=== PATIENT | male | born 1990 | race Hispanic/Latino ===

== ENCOUNTER 2018-04-11 01:42 | Emergency (ER) | payer OTHER ==
[2018-04-11 02:10] VITALS: RESP 18
[2018-04-11 02:11] VITALS: BMI 32.3
--- NOTE | 2018-04-11 02:59 | ED PDOC ---
HPI: Chest Pain Time Seen by Provider: 04/11/18 02:20 Chief Complaint (Nursing): Palpitations History Per: Patient History/Exam Limitations: clinical condition Onset/Duration Of Symptoms: Hrs Current Symptoms Are (Timing): Gone Now Additional Complaint(s): Hx of HTN presenting with resolved bilateral arm tingling and palpitations. States he was watching TV on his phone in bed around 1245AM, states that he got up to use the bathroom and felt sudden onset of bilateral arm tingling as if they were falling asleep, girlfriend relates that they were shaking as well, states that he was having palpitations during that but states that he was feeling anxious, denies chest pain, shortness of breath. States he was in [place] today but was not drinking alcohol and denies drugs. No cough, fevers, chills, nausea, vomiting, diarrhea, abdominal pain. Past Medical History Reviewed: Historical Data, Nursing Documentation, Vital Signs Vital Signs: Last Vital Signs Temp 98.2 F 04/11/18 02:10 Pulse 76 04/11/18 04:07 Resp 18 04/11/18 02:10 BP 179/137 H 04/11/18 04:07 Pulse Ox 100 04/11/18 04:07 - Family History Family History: States: Unknown Family Hx - Home Medications Home Medications: Ambulatory Orders Medication Instructions Recorded hydroCHLOROthiazide [Microzide] 50 mg PO DAILY #30 tab 04/11/18 - Allergies Allergies/Adverse Reactions: Allergies Allergy/AdvReac Type Severity Reaction Status Date / Time No Known Allergies Allergy Verified 04/11/18 02:11 Review of Systems ROS Statement: Except As Marked, All Systems Reviewed And Found Negative Cardiovascular: Positive for: Palpitations Physical Exam - Reviewed Nursing Documentation Reviewed: Yes Vital Signs Reviewed: Yes - Physical Exam Appears: Positive for: Well, Non-toxic, No Acute Distress Head Exam: Positive for: ATRAUMATIC, NORMAL INSPECTION, NORMOCEPHALIC Skin: Positive for: Normal Color, Warm, DRY Eye Exam: Positive for: EOMI, Normal appearance, PERRL ENT: Positive for: Normal ENT Inspection Neck: Positive for: Normal, Painless ROM Cardiovascular/Chest: Positive for: Regular Rate, Rhythm Respiratory: Positive for: CNT, Normal Breath Sounds Gastrointestinal/Abdominal: Positive for: Normal Exam, Soft Back: Positive for: Normal Inspection Extremity: Positive for: Normal ROM Neurologic/Psych: Positive for: Alert, Oriented - Laboratory Results Result Diagrams: 04/11/18 03:25 04/11/18 03:25 - ECG O2 Sat by Pulse Oximetry: 99 Medical Decision Making Medical Decision MakinAM Hx of HTN on HCTZ, amolidipne, labetolol presenting with resolved tinglign -currently well appearing normal vitals, no symptoms, no chest pain -EKG shows TWI in inferior leads, patient states he's had EKG abnormalities in reanna past -will do bloodwork and serial EKGs, CXR 5AM -patient remains asymptomatic -BP elevated currently, will give amlodipine and lisinopril -patient ran out of HCTZ, will refill -repeat eKG shows no changes -strongly advised patient to followup with his PMD in [facility] on Thursday for followup -return precautions given Disposition - Clinical Impression Clinical Impression: Palpitations, Hypertension - Patient ED Disposition Is Patient to be Admitted: No - Disposition Referrals: [facility]ia Humphreys [Outside] Disposition: Routine/Home Disposition Time: 05: Condition: STABLE Additional Instructions: Please followup with your primary care doctor on Thursday. If you develop worsening symptoms or chest pain, shortness of breath, or any new concerning symptoms, please return to the ER. Prescriptions: hydroCHLOROthiazide [Microzide] 50 mg PO DAILY #30 tab Instructions: High Blood Pressure in Adults, Medicines for High Blood Pressure , Low Salt Diet, Palpitations Forms: [employer] [facility] (Yi)
[2018-04-11 03:37] LABS: BASO # 0.1 K/uL (0.0-0.2); BASO % 0.8 % (0.0-2.0); EOS # 0.2 K/uL (0.0-0.7); EOS % 2.2 % (0.0-4.0); HEMOGLOBIN 16.4 g/dL (12.0-18.0); LYMPH # 2.1 K/uL (1.0-4.3); MEAN CELL VOLUME 82.2 fl (80.0-94.0); MEAN CORPUSCULAR HEMOGLOBIN 29.4 pg (27.0-31.0); MEAN CORPUSCULAR HGB CONC 35.8 g/dL (33.0-37.0); MEAN PLATELET VOLUME 9.8 fl (7.2-11.7); MONO # 0.8 K/uL (0.0-0.8); NEUT # 7.3 K/uL (1.8-7.0); NRBC % 0.2 % (0.0-0.0); RBC 5.57 Mil/uL (4.40-5.90); RED CELL DISTRIBUTION WIDTH 12.9 % (11.5-14.5); WHITE BLOOD COUNT 10.6 K/uL (4.8-10.8)
[2018-04-11 03:43] LABS: BLOOD UREA NITROGEN 14 mg/dl (9-20); CALCIUM 9.3 mg/dL (8.4-10.2); GFR AFRICAN-AMERICAN > 60; GFR NON-AFRICAN AMERICAN > 60
[2018-04-11 04:06] LABS: INR 1.1 (0.9-1.2); PARTIAL THROMBOPLASTIN TIME 32.1 Seconds (25.6-37.1); PROTHROMBIN TIME 12.7 Seconds (9.8-13.1)
[2018-04-11 05:27] VITALS: O2SAT 99
[2018-04-11 08:21] VITALS: BP 177/116; PULSE 84; TEMP 98.4
--- NOTE | 2018-04-11 11:53 | RAD ---
Date of service: 04/11/2018 HISTORY: palpitations COMPARISON: No prior. TECHNIQUE: Chest PA and lateral FINDINGS: LUNGS: No active pulmonary disease. PLEURA: No significant pleural effusion identified. No pneumothorax apparent. CARDIOVASCULAR: Normal. OSSEOUS STRUCTURES: No significant abnormalities. VISUALIZED UPPER ABDOMEN: Normal. OTHER FINDINGS: None. IMPRESSION: No active disease.
--- NOTE | 2018-04-11 13:50 | CARD ---
APPROVED REPORT Date of service: 04/11/2018 EKG Measurement Heart [id number] <Conclusion> Normal sinus rhythm ST & T wave abnormality, consider inferior ischemia ST & T wave abnormality, consider anterolateral ischemia Prolonged QT Abnormal ECG
--- NOTE | 2018-04-11 13:50 | CARD ---
APPROVED REPORT Date of service: 04/11/2018 EKG Measurement Heart [id number] <Conclusion> Normal sinus rhythm Possible Left atrial enlargement ST & T wave abnormality, consider inferolateral ischemia Prolonged QT Abnormal ECG
== END 2018-04-11 06:48 | disposition home or self-care (01) ==
LOC: H.ER 01:42
DX: R00.2 Palpitations (principal); I10 Essential (primary) hypertension